=== PATIENT | male | born 1965 | race African-American/Black ===

== ENCOUNTER → 2016-10-03 | Day surgery (SDC) | payer OTHER ==
[2016-09-23 09:41] VITALS: BMI 25.0
[~2016-10-03] VITALS: Ht 180.3 cm; Wt 84.1 kg
[~2016-10-03] MED LIST: ATOR-22 PO; LIDOCAINE HCL 2% 2 ML VIAL (20MG/ML) ONE; MULTTAB58 PO; PROPOFOL IV EMULSION 10 MG/ML 20 ML VIAL IV ONE; SODIUM CHLORIDE 0.9% 500ML 500 ML IV ONE
[2016-10-03 11:39] VITALS: Ht 180.3 cm; Wt 84.1 kg
[2016-10-03 11:49] VITALS: TEMP 36.7
--- NOTE | 2016-10-03 12:11 | Endo History and Physical ---
History & Physical Date of Service: October 03, 2016. Chief Complaint: hem positive stool Referring Physician: Dr. Kezia Anderson History of Present Illness 50 yo AAM who presents for EGD and colonoscopy secondary to heme positive stool. Past Surgical History Hx Cardiac Surgery: No Hx Internal Defibrillator: No Hx Pacemaker: No Hx Abdominal Surgery: No Hx of Implantable Prosthesis: No Hx Post-Op Nausea and Vomiting: No (never had anesthesia) Hx Cancer Surgery: No Hx Thoracic Surgery: No Hx Orthopedic: No Hx Urinary Tract Surgery: No Family History None Social History Smoking Status: Former Smoker Hx Substance Use: No Hx Alcohol Use: No Allergies Coded Allergies: No Known Allergies (Verified , 10/03/16) Current Medications Reported Home Medications Medications Dose Route/Sig Max Daily Dose Days Date Category Multivitamin (Multiple Vitamin) 1 Tab Tab 1 Tab PO DAILY 09/23/16 Reported Lipitor (Atorvastatin Calcium) 20 Mg Tab 20 Mg PO DAILY 09/23/16 Reported Vital Signs Weight (Kilograms): 84.09 Height (Feet): 5 Height (Inches): 11 Date Time Temp Pulse Resp B/P Pulse Ox O2 Delivery O2 Flow Rate FiO2 10/03/16 11:49 36.7 81 20 165/94 96 Room Air Physical Exam General Appearance: WD/WN, no apparent distress Respiratory/Chest: Auscultation: breath sounds normal Cardiovascular: Heart Auscultation: RRR Abdomen: Bowel Sounds: normal Inspection & Palpation: soft, non-distended, no tenderness, guarding & rebound Assessment and Plan Assessment: 50 yo AAM who presents for EGD and colonoscopy secondary to heme positive stool. Plan: Proceed with EGD and colonoscopy.
--- NOTE | 2016-10-03 12:56 | GI REPORT ---
Procedure Date: 10/03/2016 12:40 PM Procedure: Upper GI endoscopy Indications: Heme positive stool Medicines: Monitored Anesthesia Care Complications: No immediate complications. Estimated Blood Loss: Estimated blood loss: none. Procedure: Pre-Anesthesia Assessment: - Prior to the procedure, a History and Physical was performed, and patient medications and allergies were reviewed. The patient's tolerance of previous anesthesia was also reviewed. The risks and benefits of the procedure and the sedation options and risks were discussed with the patient. All questions were answered, and informed consent was obtained. Prior Anticoagulants: The patient has taken no previous anticoagulant or antiplatelet agents. ASA Grade Assessment: II - A patient with mild systemic disease. After reviewing the risks and benefits, the patient was deemed in satisfactory condition to undergo the procedure. After obtaining informed consent, the endoscope was passed under direct vision. Throughout the procedure, the patient's blood pressure, pulse, and oxygen saturations were monitored continuously. The On-site loaner was introduced through the mouth, and advanced to the second part of duodenum. The upper GI endoscopy was accomplished without difficulty. The patient tolerated the procedure well. Findings: The esophagus was normal. A small hiatus hernia was present. Localized mild inflammation characterized by erosions and erythema was found in the gastric antrum. Biopsies were taken with a cold forceps for histology. The examined duodenum was normal. Impression: - Normal esophagus. - Small hiatus hernia. - Gastritis. Biopsied. - Normal examined duodenum. Recommendation: - Resume previous diet. - Continue present medications. - Await pathology results. - Use Prilosec (omeprazole) 20 mg PO daily. - Return to primary care physician as previously scheduled. Jaelel Fenton, 10/03/2016 12:54:18 PM This report has been signed electronically. Note Initiated On: 10/03/2016 12:40 PM I attest to the content of the Intraoperative Record and orders documented therein, exceptions below
--- NOTE | 2016-10-03 13:11 | GI REPORT ---
Procedure Date: 10/03/2016 12:39 PM Procedure: Colonoscopy Indications: Heme positive stool Medicines: Monitored Anesthesia Care Complications: No immediate complications. Estimated Blood Loss: Estimated blood loss: none. Procedure: Pre-Anesthesia Assessment: - Prior to the procedure, a History and Physical was performed, and patient medications and allergies were reviewed. The patient's tolerance of previous anesthesia was also reviewed. The risks and benefits of the procedure and the sedation options and risks were discussed with the patient. All questions were answered, and informed consent was obtained. Prior Anticoagulants: The patient has taken no previous anticoagulant or antiplatelet agents. ASA Grade Assessment: II - A patient with mild systemic disease. After reviewing the risks and benefits, the patient was deemed in satisfactory condition to undergo the procedure. After I obtained informed consent, the scope was passed under direct vision. Throughout the procedure, the patient's blood pressure, pulse, and oxygen saturations were monitored continuously. The scope was introduced through the anus and advanced to the terminal ileum. The colonoscopy was performed without difficulty. The patient tolerated the procedure well. The quality of the bowel preparation was good. The terminal ileum, ileocecal valve, appendiceal orifice, and rectum were photographed. Findings: A 6 mm polyp was found in the sigmoid colon. The polyp was pedunculated. The polyp was removed with a hot snare. Resection and retrieval were complete. Non-bleeding internal hemorrhoids were found during retroflexion. The hemorrhoids were small. Impression: - One 6 mm polyp in the sigmoid colon, removed with a hot snare. Resected and retrieved. - Non-bleeding internal hemorrhoids. Recommendation: - Resume previous diet. - Continue present medications. - Repeat colonoscopy for surveillance based on pathology results. - Return to primary care physician as previously scheduled. Jaleel Fenton DO 10/03/2016 1:10:23 PM This report has been signed electronically. Note Initiated On: 10/03/2016 12:39 PM I attest to the content of the Intraoperative Record and orders documented therein, exceptions below
--- NOTE | 2016-10-03 13:15 | Discharge Instructions ---
Endoscopy Patient Instructions Date / Procedure(s) Performed October 03, 2016. Colonoscopy, EGD Allergy Information Coded Allergies: No Known Allergies (Verified , 10/03/16) Discharge Date / Findings October 03, 2016. EGD: Gastritis and Hiatal hernia Colonoscopy: Colon polyp and Internal hemorrhoids Medication Instructions 1) OK to resume all medications today as prescribed 2) Start Prilosec 20mg by mouth each morning 1/2 hour prior to breakfast. Reported Home Medications Medications Dose Route/Sig Max Daily Dose Days Date Category Multivitamin (Multiple Vitamin) 1 Tab Tab 1 Tab PO DAILY 09/23/16 Reported Lipitor (Atorvastatin Calcium) 20 Mg Tab 20 Mg PO DAILY 09/23/16 Reported Provider Instructions Activity Restrictions - No exercising or heavy lifting for 24 hours. - Do not drink alcohol the day of the procedure. - Do not drive a car or operate machinery until the day after the procedure. - Do not make any important decisions or sign important papers in 24 hours after the procedure. Following Day: - Return to full activity which may include returning to work/school. Diet Start your diet with liquids and light foods (jello, soup, juice, toast). Then eat your usual diet if not nauseated. Treatment For Common After Affects For mild abdominal pain, bloating, or excessive gas: - Rest - Eat lightly - Lie on right side Follow-Up Information Follow-up with Dr. Kezia Anderson as scheduled Anesthesia Information What You Should Know You have had a procedure that required some medicine to reduce anxiety and discomfort. This treatment is called moderate sedation. After receiving the treatment, you may be sleepy, but you will be able to breathe on your own. The effects of the treatment may last for several hours. Follow these instructions along with Activity/Diet recommendations noted above: * Do NOT do anything where dizziness or clumsiness would be dangerous. * Rest quietly at home today, then you can be up and about tomorrow. * Have a responsible person stay with you the rest of today. * You may have had an I.V. today. If so, you may take the dressing off later today. Recommendations Call your doctor if: * Trouble breathing * Continuous vomiting for more than 24 hours * Temperature above 101 degrees * Severe abdominal pain or bloating * Pain not relieved by pain medicine ordered * There is increased drainage or redness from any incision * A large amount of rectal bleeding greater than 2-3 tablespoons. (If you had a polyp/s removed or have hemorrhoids, a small amount of blood - from the rectum is to be expected.) * You have any unanswered questions or concerns. IN THE EVENT OF A SERIOUS EMERGENCY, GO TO THE NEAREST EMERGENCY ROOM Your discharge instructions were prepared by provider Jaleel Fenton. Patient Instructions Signature Page [employer] [facility] Patient (or Guardian) Signature/Date: I have read and understand the instructions given to me by my caregivers. Caregiver/RN/Doctor Signature/Date: The above-named patient and/or guardian has received patient instructions on this date. + Original Patient Signature Page (only) stays with chart. Please make copy for patient.
[2016-10-03 13:50] VITALS: BP 126/96; PULSE 74; O2SAT 99
--- NOTE | 2016-10-03 14:20 | Anesthesiology Progress Note ---
Anesthesia Post Op Note Date & Time October 03, 2016 at 14:18 Vital Signs Pain Intensity: 0 Vital Signs Past 12 Hours Date Time Temp Pulse Resp B/P Pulse Ox O2 Delivery O2 Flow Rate FiO2 10/03/16 13:50 74 20 126/96 99 Room Air 10/03/16 13:32 78 20 127/81 96 Room Air 10/03/16 13:14 80 18 112/73 96 Room Air 10/03/16 11:49 36.7 81 20 165/94 96 Room Air Notes Mental Status: alert / awake / arousable, participated in evaluation Pt Amnestic to Procedure: Yes Nausea / Vomiting: adequately controlled Pain: adequately controlled Airway Patency, RR, SpO2: stable & adequate BP & HR: stable & adequate Hydration State: stable & adequate Anesthetic Complications: no major complications apparent
== END | disposition home or self-care (01) ==
LOC: C.GI 11:26
PROVIDERS: ATTEND Internal Medicine
DX: K92.1 Melena (principal); D12.5 Benign neoplasm of sigmoid colon; K44.9 Diaphragmatic hernia without obstruction or gangrene; K64.8 Other hemorrhoids; K29.50 Unspecified chronic gastritis without bleeding; Z87.891 Personal history of nicotine dependence